=== PATIENT | female | born 1970 | race Caucasian/White ===

== ENCOUNTER 2021-04-01 10:50 | Outpatient (REF) | payer BC, SELFPAY ==
--- NOTE | ~2021-04-01 | XR_ITS ---
EXAMINATION: XR ANKLE, LEFT CLINICAL INFORMATION: Sprain left ankle. COMPARISON: None TECHNIQUE: AP, lateral, and mortise views of the left ankle. FINDINGS: There is moderate lateral malleolar and anterior ankle soft tissue swelling. The ankle mortise and subtalar joints are normal. No visible acute fracture or dislocation. There is moderate calcaneal enthesophyte. XR/XR ankle LT min 3V IMPRESSION: No acute fracture or dislocation seen. Moderate lateral malleolar and ankle mortise soft tissue swelling.
== END 2021-04-01 10:51 | disposition home or self-care (01) ==
LOC: HO.HMGCX 10:50
PROVIDERS: Visit Provider Internal Medicine
DX: S93.402A Sprain of unspecified ligament of left ankle, initial encounter (principal)
CPT/HCPCS: 73610